=== PATIENT | female | born 1935 | race Caucasian/White ===

== ENCOUNTER 2016-12-17 11:01 | Emergency (ER) | payer MEDICARE, OTHER ==
[~2016-12-17] VITALS: Ht 152.4 cm; Wt 80.2 kg
[~2016-12-17 11:01] MED LIST: AMLO10 PO; ASPI81 PO; CHOLESTEROL MED; CIPR500T4 PO; DICY1TAB26 PO; GLUC750T22 PO; METR-1 PO; OMEP20TA39 PO; TEKT150T PO
[2016-12-17 11:13] VITALS: BP 139/74; PULSE 79; RESP 16; TEMP 98.6; O2SAT 96
--- NOTE | 2016-12-17 11:29 | PD ---
HPI Chief Complaint: Laceration/Skin Injury Time Seen by Provider: 11:23 Travel History International Travel<30 days: No Contact w/Intl Traveler<30days: No Traveled to known affect area: No History of Present Illness HPI 81-year-old female came to the emergency room after tripping and falling and hitting her head on the curb. She has a laceration on the right side of her forehead just above the eyebrow. She was bleeding from the area and went to a nearby store convinced her to come to the emergency room. Somebody from the store helped her to the emergency room. Patient refused to come by ambulance. She did not lose consciousness before or after the fall. She is complaining of slight headache. She does not recall her last tetanus shot. Bleeding is mostly controlled at this point. Patient started to cry while history taking and said that her 2 years ago and since then she has been very depressed and lonely. She misses him a lot and wished to be with him. She was consolable and did not have any active suicidal ideations. [facility] Past Medical History Narrative Medical List of her past medical and social history was reviewed from the nursing note as well as with the patient. Blood Disorders: No Depression: Yes Cancer: Yes (BACK CANCER WAS REMOVED) High Cholesterol: Yes Diminished Hearing: Yes Endocrine: No Glaucoma: Yes Genitourinary: No Hypertension: Yes Immune Disorder: No Musculoskeletal: No Neurologic: No Psychiatric: No Reproductive: No Respiratory: No Immunizations Current: No Menopausal: Yes Ectopic : Yes (SELF SAIPINGECTOMY) Past Surgical History Eye Surgery: Yes (CATARACT, GLAUCOMA ) Neurologic Surgery: Yes (CRANIOTOMY) Other Surgery: Yes (BREAST BIOPSY, 2 ANEURYSMS BILAT ICA, L. ANEURYSM RUPTURED , SUBARACH HEM. ) Social History Alcohol Use: No Tobacco Use: No Substance Use: No Allergies-Medications (Allergen,Severity, Reaction): Coded Allergies: Dilantin (Verified Allergy, Severe, Rash, 12/17/16) Tegretol (Verified Allergy, Severe, Rash, 12/17/16) Comments List of her allergies reviewed from the nursing note. Reported Meds & Prescriptions Reported Meds & Active Scripts Active Keflex (Cephalexin) 250 Mg Cap 250 Mg PO Q8HR 7 Days Bacitracin Topical 500 Unit/Gm Oint 1 Applic TOPICAL BID 7 Days Reported Preservision Areds (Multiple Vitamins W/ Minerals) 1 Tab 2 Tab PO DAILY Glucosamine 1,500 Mg Tab 1,500 Mg PO BID Livalo (Pitavastatin) 2 Mg Tab 2 Mg PO DAILY Ibuprofen 800 Mg Tab 800 Mg PO Q8H PRN Omeprazole 20 Mg Tab 20 Mg PO DAILY Tekturna (Aliskiren) 150 Mg Tab 150 Mg PO DAILY Amlodipine (Amlodipine Besylate) 5 Mg Tab 5 Mg PO DAILY Narrative Medication List of her home medications reviewed from the nursing note. Review of Systems Except as stated in HPI: all other systems reviewed are Neg Physical Exam Narrative GENERAL: Awake, alert, anxious, elderly SKIN: Warm and dry. HEAD: Right side of the forehead there is a 2 cm laceration with jagged edge with bleeding controlled EYES: Pupils equal and round. No scleral icterus. No injection or drainage. ENT: No nasal bleeding or discharge. Mucous membranes pink and moist. NECK: Trachea midline. No JVD. CARDIOVASCULAR: Regular rate and rhythm. No murmur appreciated. RESPIRATORY: No accessory muscle use. Clear to auscultation. Breath sounds equal bilaterally. GASTROINTESTINAL: Abdomen soft, non-tender, nondistended. Hepatic and splenic margins not palpable. MUSCULOSKELETAL: No obvious deformities. No clubbing. No cyanosis. No edema. NEUROLOGICAL: Awake and alert. No obvious cranial nerve deficits. Motor grossly within normal limits. Normal speech. PSYCHIATRIC: Appropriate mood and affect; insight and judgment normal. Data Data Last Documented VS Vital Signs Date Time Temp Pulse Resp B/P Pulse Ox O2 Delivery O2 Flow Rate FiO2 12/17/16 11:13 98.6 79 16 139/74 96 Orders Tetanus/Diphtheria Tox Adult (Tetanus/Di (12/17/16 11:45) Acetaminophen (Tylenol) (12/17/16 11:45) Ct Brain W/O Iv Contrast(Rout) (12/17/16 ) Lidocai-Epi 1%-1:100,000 Inj (Xylocaine- (12/17/16 12:45) MDM Medical Decision Making Medical Screen Exam Complete: Yes Emergency Medical Condition: Yes Medical Record Reviewed: Yes Differential Diagnosis Intracranial bleed, head injury, facial laceration Narrative Course 1 PM patient tolerated the suture procedure well. Head CT was negative which was done to find out any intracranial bleed. It did show the post op changes from the previous clips. Patient continues to remain stable and GCS of 15. I will discharge her home. She's been given instructions. Procedures Procedure Narrative LACERATION LOCATION: Facial, left side of the forehead LENGTH: 2 cm NUMBER OF STITCHES/ASHISH: 6 stitches REPAIR: The area of the laceration was prepped with Betadine and sterilely draped. The laceration was infiltrated with 1% lidocaine with epi. The wound was copiously irrigated and explored without evidence of foreign body, tendon injury or neurovascular injury. The wound was closed using 4-0 Prolene. This was a single layer repair. A sterile dressing was applied. The patient was advised to keep the dressing clean and dry. Patient tolerated the procedure well. Diagnosis Primary Impression: Fall Qualified Code: W19.XXXA - Fall, initial encounter Additional Impression: Facial laceration Qualified Code: S01.81XA - Facial laceration, initial encounter Referrals: Primary Care Physician 3 days Additional Instructions: Please return to the ER in one week to get the stitches taken out. Keep the wound clean and dry for the next 48 hours to prevent it from getting infected. Apply the antibiotic ointment prescribed to you twice a day until the stitches come out. Fill the prescription and take the medication as per the prescription direction. Return sooner to the emergency room if the wound looks infected or any other concerns. Follow-up with your primary care in couple days. Med/Other Pt SpecificInfo: Prescription(s) given Scripts Cephalexin (Keflex)250 Mg [id number] Mg PO Q8HR 7 Days Ref 0 Prov:Demi Dunlap MD 12/17/16 Bacitracin Topical 500 Unit/Gm Oint1 Applic TOPICAL BID 7 Days Ref 0 Prov:Demi Dunlap MD 12/17/16 Disposition: 01 DISCHARGE HOME Condition: Stable Demi Dunlap MD Dec 17, 2016 11:29
[2016-12-17] MEDS ORDERED: OMEP20TA PO (11:36)
[2016-12-17] MEDS ORDERED: GLUC15009 PO (11:36)
[2016-12-17] MEDS ORDERED: AMLO5TAB2 PO (11:36)
[2016-12-17] MEDS ORDERED: IBUP800T23 PO (11:36)
[2016-12-17] MEDS ORDERED: LIVA2TAB PO (11:36)
[2016-12-17] MEDS ORDERED: TEKT150T PO (11:36)
[2016-12-17] MEDS ORDERED: OCUVTAB4 PO (11:36)
[2016-12-17] MEDS ORDERED: TETANUS/DIPHTHERIA TOXOID ADULT 0.5 ML VIAL IM ONE (11:45)
[2016-12-17] MEDS ORDERED: ACETAMINOPHEN 325 MG TAB PO ONE (11:45)
--- NOTE | 2016-12-17 12:17 | RADHPO ---
EXAM DATE/TIME: 12/17/2016 12:02 [facility] COMPARISON: No previous studies available for comparison. INDICATIONS : Trauma. Tripped and fell. Right forehead laceration. RADIATION DOSE: 62.80 CTDIvol (mGy) MEDICAL HISTORY : Aneurysm, intracranial. Hypertension. SURGICAL HISTORY : Craniotomy. ENCOUNTER: Initial ACUITY: 1 day PAIN SCALE: 0/10 LOCATION: Right cranial TECHNIQUE: Multiple contiguous axial images were obtained of the head. Using automated exposure control and adj ustment of the mA and/or kV according to patient size, radiation dose was kept as low as reasonably a chievable to obtain optimal diagnostic quality images. FINDINGS: CEREBRUM: There is mild atrophic change. Aneurysm clips are present in the suprasellar regions with extensive s treak artifact limited visualization. There is an area decreased attenuation involving the right fron luz lobe extends up to the cortex of the brain with no mass effect. No evidence of midline shift, mas s lesion, hemorrhage or acute infarction. No extra-axial fluid collections are seen. POSTERIOR FOSSA: The cerebellum and brainstem are intact. The 4th ventricle is midline. The cerebellopontine angle i s unremarkable. EXTRACRANIAL: The visualized portion of the orbits is intact. SKULL: Remote postsurgical changes as present status post right frontal temporal craniotomy. There is no ra dence of acute fracture. CONCLUSION: 1. No acute hemorrhage or mass effect. 2. Oval area decreased attenuation involving the white matter the right frontal lobe which extends to the surface the brain with no mass effect. Could represent encephalomalacia. Edema is less likely.. 3. Remote postsurgical changes with multiple aneurysm clips and streak artifact. Darin Morrow MD on December 17, 2016 at 12:13 Board Certified Radiologist. This report was verified electronically.
[2016-12-17] MEDS ORDERED: LIDOCAINE 1%/EPINEPHrine 1:100,000 SOLN 20 ML VIAL INFIL ONE (12:45)
[2016-12-17] MEDS ORDERED: BACI500O9 TOPICAL (12:58)
[2016-12-17] MEDS ORDERED: CEPH-459 PO (12:58)
== END 2016-12-17 13:25 | disposition home or self-care (01) ==
LOC: PHED 11:01
DX: S01.81XA Laceration without foreign body of other part of head, initial encounter (principal); W01.0XXA Fall on same level from slipping, tripping and stumbling without subsequent striking against object, initial encounter; Z23 Encounter for immunization
CPT/HCPCS: 12011; 70450; 90471; 90714

== ENCOUNTER 2016-12-24 07:18 | Emergency (ER) | payer MEDICARE, OTHER ==
[~2016-12-24] VITALS: Ht 147.3 cm; Wt 80.9 kg
[~2016-12-24 07:18] MED LIST changes: -AMLO10 PO; +AMLO5TAB2 PO; -ASPI81 PO; +BACI500O9 TOPICAL; +CEPH-459 PO; -CHOLESTEROL MED; -CIPR500T4 PO; -DICY1TAB26 PO; +GLUC15009 PO; -GLUC750T22 PO; +IBUP800T23 PO; +LIVA2TAB PO; -METR-1 PO; +OCUVTAB4 PO; +OMEP20TA PO; -OMEP20TA39 PO
[2016-12-24 07:33] VITALS: BP 144/77; PULSE 68; RESP 16; TEMP 97.7; O2SAT 97
--- NOTE | 2016-12-24 07:56 | PD ---
HPI Chief Complaint: Wound/Suture/Staple Re-Check Time Seen by Provider: 07:53 Travel History International Travel<30 days: No Contact w/Intl Traveler<30days: No Traveled to known affect area: No History of Present Illness HPI 81 y/o female presents with for suture removal from her forehead. She denies any active complaints. PFSH Past Medical History Blood Disorders: No Depression: Yes Cancer: Yes (Skin) High Cholesterol: Yes Diminished Hearing: Yes Endocrine: No Glaucoma: Yes Genitourinary: No Hypertension: Yes Immune Disorder: No Musculoskeletal: No Neurologic: Yes (BL ICA, SAH) Psychiatric: No Reproductive: No Respiratory: No Immunizations Current: No Tetanus Vaccination: < 5 Years Influenza Vaccination: Yes ?: Not Menopausal: Yes Ectopic : Yes (Rt. salpingectomy ) Past Surgical History Eye Surgery: Yes Neurologic Surgery: Yes (Craniotomy, aneurysm clipped/coiling) Other Surgery: Yes (BREAST BIOPSY, 2 ANEURYSMS BILAT ICA, L. ANEURYSM RUPTURED , SUBARACH HEM. ) Social History Alcohol Use: No Tobacco Use: No Substance Use: No Allergies-Medications (Allergen,Severity, Reaction): Coded Allergies: Dilantin (Verified Allergy, Severe, Rash, 12/24/16) Tegretol (Verified Allergy, Severe, Rash, 12/24/16) Reported Meds & Prescriptions Reported Meds & Active Scripts Active Keflex (Cephalexin) 250 Mg Cap 250 Mg PO Q8HR 7 Days Bacitracin Topical 500 Unit/Gm Oint 1 Applic TOPICAL BID 7 Days Reported Preservision Areds (Multiple Vitamins W/ Minerals) 1 Tab 2 Tab PO DAILY Glucosamine 1,500 Mg Tab 1,500 Mg PO BID Livalo (Pitavastatin) 2 Mg Tab 2 Mg PO DAILY Ibuprofen 800 Mg Tab 800 Mg PO Q8H PRN Omeprazole 20 Mg Tab 20 Mg PO DAILY Tekturna (Aliskiren) 150 Mg Tab 150 Mg PO DAILY Amlodipine (Amlodipine Besylate) 5 Mg Tab 5 Mg PO DAILY Review of Systems Except as stated in HPI: all other systems reviewed are Neg Physical Exam Narrative GENERAL: Well-nourished, well-developed patient. SKIN: Warm and dry. Sutures are well healing to right forehead without signs of infection HEAD: Normocephalic EYES: No injection or drainage. ENT: No nasal drainage noted. NECK: Supple, trachea midline. CARDIOVASCULAR: Regular rate and rhythm NEUROLOGICAL: Awake and alert. Motor and sensory grossly within normal limits. Normal speech. Data Data Last Documented VS Vital Signs Date Time Temp Pulse Resp B/P Pulse Ox O2 Delivery O2 Flow Rate FiO2 12/24/16 07:33 97.7 68 16 144/77 97 MDM Medical Decision Making Medical Screen Exam Complete: Yes Emergency Medical Condition: Yes Medical Record Reviewed: Yes (past history confirm) Differential Diagnosis Suture removal Narrative Course Sutures will be removed by staff. Patient given return instructions Diagnosis Primary Impression: Visit for suture removal Patient Instructions: General Instructions Additional Instructions: Return as needed, continue wound care, follow-up as needed Med/Other Pt SpecificInfo: No Change to Meds Disposition: 01 DISCHARGE HOME Condition: Stable Laura Bunch MD Dec 24, 2016 07:56
== END 2016-12-24 08:20 | disposition home or self-care (01) ==
LOC: PHED 07:18
DX: S01.81XD Laceration without foreign body of other part of head, subsequent encounter (principal); X58.XXXD Exposure to other specified factors, subsequent encounter; Z48.02 Encounter for removal of sutures
CPT/HCPCS: 99281